=== PATIENT | male | born 1980 | race Caucasian/White ===

== ENCOUNTER 2017-07-20 15:48 | Emergency (ER) | payer BC ==
[~2017-07-20] VITALS: Ht 172.7 cm; Wt 78.0 kg
[~2017-07-20 15:48] MED LIST: DICY1TAB26 PO
[2017-07-20 15:56] VITALS: BP 137/89; PULSE 52; RESP 16; TEMP 97.7; O2SAT 100
--- NOTE | 2017-07-20 16:35 | PD ---
HPI Chief Complaint: Chest Pain Time Seen by Provider: 16:25 Travel History International Travel<30 days: No Contact w/Intl Traveler<30days: No Traveled to known affect area: No History of Present Illness HPI Patient is a 37-year-old male presents emergency department for evaluation of chest spasms and chest pain. Patient had an endoscopy today with Dr. Acevedo and had what he describes as esophageal dilation. There are looking for ulcers according to him. He states since the anesthesia worn off he's been having intermittent pain which is severe and feels like he needs to belch but only acid is coming up. States she's lost his appetite. Denies any blood in stool blood in the emesis. No pain on breathing. Denies any fevers. States the pain is severe, intermittent, context as above, associated signs symptoms as above. PFSH Past Medical History Asthma: Yes Diminished Hearing: No GERD: Yes Influenza Vaccination: No ?: Not Past Surgical History Abdominal Surgery: Yes (Hernia) Social History Alcohol Use: No Tobacco Use: Yes (Occ.) Substance Use: No Allergies-Medications (Allergen,Severity, Reaction): Coded Allergies: acetaminophen (Unverified Adverse Reaction, Intermediate, HIVES, 07/20/17) oxycodone (Unverified Adverse Reaction, Intermediate, HIVES, 07/20/17) promethazine (Unverified Adverse Reaction, Intermediate, EMESIS, 07/20/17) Reported Meds & Prescriptions Reported Meds & Active Scripts Active Sucralfate Liq (Sucralfate) 1 Gram/10 Ml Kerri 1 Gm PO QID on empty stomach Bentyl (Dicyclomine HCl) 10 Mg Cap 10 Mg PO TID PRN Nitroglycerin SL (Nitroglycerin) 0.4 Mg Subl 0.4 Mg SL DIRECTED PRN ONE TABLET UNDER THE TONGUE NEEDED FOR CHEST PAIN, MAY REPEAT EVERY FIVE MINUTES FOR A TOTAL OF 3 DOSES OR CALL 911 IF NO RELIEF Bentyl (Dicyclomine HCl) 20 Mg Tab 20 Mg PO Q8 Review of Systems Except as stated in HPI: all other systems reviewed are Neg Physical Exam Narrative GENERAL: Well-developed well-nourished appears fairly uncomfortable but having spasmodic episodes where he appears painful. SKIN: Focused skin assessment warm/dry. HEAD: Atraumatic. Normocephalic. EYES: Pupils equal and round. No scleral icterus. No injection or drainage. ENT: No nasal bleeding or discharge. Mucous membranes pink and moist. NECK: Trachea midline. No JVD. CARDIOVASCULAR: Regular rate and rhythm. No murmur appreciated. No gallops no rubs. No Pascual's crunch. RESPIRATORY: No accessory muscle use. Clear to auscultation. Breath sounds equal bilaterally. GASTROINTESTINAL: Abdomen soft, non-tender, nondistended. Hepatic and splenic margins not palpable. MUSCULOSKELETAL: No obvious deformities. No clubbing. No cyanosis. No edema. NEUROLOGICAL: Awake and alert. No obvious cranial nerve deficits. Motor grossly within normal limits. Normal speech. PSYCHIATRIC: Appropriate mood and affect; insight and judgment normal. Data Data Last Documented VS Vital Signs Date Time Temp Pulse Resp B/P (MAP) Pulse Ox O2 Delivery O2 Flow Rate FiO2 07/20/17 19:00 07/20/17 18:09 55 18 98 Room Air 07/20/17 15:56 97.7 Orders Orders Al-Mag Hy-Si 40-40-4 Mg/Ml Liq (Mag-Al P (07/20/17 16:45) Lidocaine 2% Viscous (Xylocaine 2% Visco (07/20/17 16:45) Chest, Pa & Lat (07/20/17 ) Ckmb (Isoenzyme) Profile (07/20/17 16:50) Complete Blood Count With Diff (07/20/17 16:50) Comprehensive Metabolic Panel (07/20/17 16:50) Magnesium (Mg) (07/20/17 16:50) Prothrombin Time / Inr (Pt) (07/20/17 16:50) Act Partial Throm Time (Ptt) (07/20/17 16:50) Troponin I (07/20/17 16:50) Ecg Monitoring (07/20/17 16:50) Iv Access Insert/Monitor (07/20/17 16:50) Oximetry (07/20/17 16:50) Oxygen Administration (07/20/17 16:50) Sodium Chloride 0.9% Flush (Ns Flush) (07/20/17 17:00) Orphenadrine Inj (Norflex Inj) (07/20/17 17:00) Nitroglycerin Sl (Nitrostat Sl) (07/20/17 17:15) CKMB (07/20/17 17:00) CKMB% (07/20/17 17:00) Gastrografin Swallow (07/20/17 ) Nitroglycerin Sl (Nitrostat Sl) (07/20/17 18:15) Ed Discharge Order (07/20/17 18:23) Electrocardiogram (07/20/17 16:02) Labs Laboratory Tests Test 07/20/17 17:00 White Blood Count 12.6 TH/MM3 Red Blood Count 4.85 MIL/MM3 Hemoglobin 15.4 GM/DL Hematocrit 44.2 % Mean Corpuscular Volume 91.1 FL Mean Corpuscular Hemoglobin 31.8 PG Mean Corpuscular Hemoglobin Concent 34.9 % Red Cell Distribution Width 11.6 % Platelet Count 174 TH/MM3 Mean Platelet Volume 7.1 FL Neutrophils (%) (Auto) 76.7 % Lymphocytes (%) (Auto) 16.8 % Monocytes (%) (Auto) 3.4 % Eosinophils (%) (Auto) 2.2 % Basophils (%) (Auto) 0.9 % Neutrophils # (Auto) 9.7 TH/MM3 Lymphocytes # (Auto) 2.1 TH/MM3 Monocytes # (Auto) 0.4 TH/MM3 Eosinophils # (Auto) 0.3 TH/MM3 Basophils # (Auto) 0.1 TH/MM3 CBC Comment DIFF FINAL Differential Comment Prothrombin Time 11.1 SEC Prothromb Time International Ratio 1.0 RATIO Activated Partial Thromboplast Time 29.9 SEC Blood Urea Nitrogen 12 MG/DL Creatinine 1.00 MG/DL Random Glucose 106 MG/DL Total Protein 7.3 GM/DL Albumin 4.1 GM/DL Calcium Level 9.2 MG/DL Magnesium Level 2.0 MG/DL Alkaline Phosphatase 66 U/L Aspartate Amino Transf (AST/SGOT) 16 U/L Alanine Aminotransferase (ALT/SGPT) 23 U/L Total Bilirubin 1.9 MG/DL Sodium Level 138 MEQ/L Potassium Level 3.9 MEQ/L Chloride Level 104 MEQ/L Carbon Dioxide Level 25.5 MEQ/L Anion Gap 9 MEQ/L Estimat Glomerular Filtration Rate 84 ML/MIN Total Creatine Kinase 124 U/L Creatine Kinase MB 1.2 NG/ML Troponin I LESS THAN 0.02 NG/ML MDM Medical Decision Making Medical Screen Exam Complete: Yes Emergency Medical Condition: Yes Differential Diagnosis Esophageal perforation, esophageal spasm, Boerhaave syndrome, Narrative Course Patient 37-year-old male had endoscopy and esophageal dilation today. He admitted to nursing that he after the procedure went to have some coffee and a large sausage. Since then he's been living alone. Likely this represents esophageal irritation from coffee in the sausage. Basic labs are reassuring, EKG negative. Chest x-ray shows no free air, discussed the patient with Dr. Bhatt who agrees with the patient either has CT scan or barium swallow indicated at this time. Patient discussed with Dr. Olvera of radiology who has reviewed the patient's swallow study and shows no esophageal abnormality. Patient feeling better after GI cocktail and nitroglycerin and Flexeril. He still having intermittent spasms of the much further spaced out. 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 He is stable for discharge. Diagnosis Primary Impression: Esophageal spasm Additional Instructions: Call Dr. jason florez first thing in the morning for further instructions. Avoid anything you have to chew tonight, tried pudding and Jell-O. No acidic foods. No tomatoes, no citrus. Med/Other Pt SpecificInfo: Prescription(s) given Scripts Sucralfate Liq (Sucralfate Liq) 1 Gram/10 Ml Kerri 1 GM PO QID for Duodenal ulcer, #1200 ML on empty stomach Prov: Jv Monteiro MD 07/20/17 Dicyclomine (Bentyl) 10 Mg Cap 10 MG PO TID Y for Bowel Management, #20 CAP 0 Refills Prov: Jv Monteiro MD 07/20/17 Nitroglycerin SL (Nitroglycerin SL) 0.4 Mg Subl 0.4 MG SL DIRECTED Y for Spasm, #25 TAB.SL 0 Refills ONE TABLET UNDER THE TONGUE NEEDED FOR CHEST PAIN, MAY REPEAT EVERY FIVE MINUTES FOR A TOTAL OF 3 DOSES OR CALL 911 IF NO RELIEF Prov: Jv Monteiro MD 07/20/17 Disposition: 01 DISCHARGE HOME Condition: Stable Jv Monteiro MD Jul 20, 2017 16:35
[2017-07-20] MEDS ORDERED: ALUMINUM/MAGNESIUM/SIMETH 30 ML CUP PO ONE (16:45)
[2017-07-20] MEDS ORDERED: LIDOCAINE VISCOUS 2% SOLN 15 ML UDC PO ONE (16:45)
--- NOTE | 2017-07-20 16:52 | RADRPT ---
EXAM DATE/TIME: 07/20/2017 16:39 [facility] COMPARISON: No previous studies available for comparison. INDICATIONS : Patient states pain in his chest and throat post endoscopy today. MEDICAL HISTORY : None. SURGICAL HISTORY : None. ENCOUNTER: Initial ACUITY: 1 day PAIN SCORE: 3/10 LOCATION: Bilateral chest FINDINGS: PA and lateral views of the chest demonstrate a normal-sized cardiac silhouette. There is no effusion , consolidation, or pneumothorax. The bones and soft tissues demonstrate no acute abnormality. EKG li gaye overlie the patient. No pneumomediastinum is appreciated. CONCLUSION: No acute abnormality is identified. Chencho Vargas MD on July 20, 2017 at 16:50 Board Certified Radiologist. This report was verified electronically.
[2017-07-20] MEDS ORDERED: SODIUM CHLORIDE 0.9% FLUSH 10 ML FLUSH IVF PRN (17:00)
[2017-07-20] MEDS ORDERED: ORPHENADRINE INJ 60 MG/2 ML AMP IM ONE (17:00)
[2017-07-20 17:10] VITALS: BP 145/83; PULSE 60; RESP 18; O2SAT 98
[2017-07-20 17:10] LABS: AUTOMATED NEUTROPHIL # 9.7 TH/MM3 (1.8-7.7); BASOPHIL # 0.1 TH/MM3 (0-0.2); BASOPHIL % 0.9 % (0.0-2.0); EOSINOPHIL # 0.3 TH/MM3 (0-0.4); EOSINOPHIL % 2.2 % (0.0-4.0); HEMATOCRIT 44.2 % (39.0-51.0); LYMPH % 16.8 % (9.0-44.0); LYMPHOCYTE # 2.1 TH/MM3 (1.0-4.8); MEAN CELL VOLUME 91.1 FL (80.0-100.0); MEAN CORPUSCULAR HEMOGLOBIN 31.8 PG (27.0-34.0); MEAN CORPUSCULAR HGB CONC 34.9 % (32.0-36.0); MONO % 3.4 % (0.0-8.0); NEUT % 76.7 % (16.0-70.0); PLATELET COUNT 174 TH/MM3 (150-450); RED BLOOD COUNT 4.85 MIL/MM3 (4.50-5.90); RED CELL DISTRIBUTION WIDTH 11.6 % (11.6-17.2); WHITE BLOOD COUNT 12.6 TH/MM3 (4.0-11.0)
[2017-07-20 17:11] LABS: HEMO FLAGS DIFF FINAL
[2017-07-20] MEDS ORDERED: NITROGLYCERIN 0.4 MG SL 25 TABS/BTL SL ONE ×2 (17:15→18:15)
[2017-07-20 17:18] LABS: CHLORIDE 104 MEQ/L (98-107); POTASSIUM 3.9 MEQ/L (3.5-5.1); SODIUM (NA) 138 MEQ/L (136-145)
[2017-07-20 17:22] LABS: ANION GAP 9 MEQ/L (5-15); APTT (PATIENT) 29.9 SEC (24.3-30.1); BICARBONATE 25.5 MEQ/L (21.0-32.0); BLOOD UREA NITROGEN 12 MG/DL (7-18); PROTHROMBIN TIME - PATIENT 11.1 SEC (9.8-11.6)
[2017-07-20 17:25] LABS: ALT (GPT) 23 U/L (12-78); AST (GOT) 16 U/L (15-37); GLOMERULAR FILTRATION RATE 84 ML/MIN (>89)
[2017-07-20 17:26] LABS: TOTAL BILIRUBIN ADULT 1.9 MG/DL (0.2-1.0)
[2017-07-20 17:28] LABS: ALKALINE PHOSPHATASE 66 U/L (45-117); CREATINE KINASE 124 U/L (39-308)
[2017-07-20 17:39] LABS: CKMB 1.2 NG/ML (0.5-3.6)
[2017-07-20 18:09] VITALS: BP 141/84; PULSE 55; RESP 18; O2SAT 98
[2017-07-20] MEDS ORDERED: SUCR1S PO (18:13)
[2017-07-20] MEDS ORDERED: DICY10 PO (18:13)
[2017-07-20] MEDS ORDERED: NITR1SUB3 SL (18:13)
--- NOTE | 2017-07-21 08:43 | RADRPT ---
EXAM DATE/TIME: 07/20/2017 17:02 [facility] COMPARISON: No previous studies available for comparison. INDICATIONS : Patient states pain swallowing after having edoscopy today. FLUORO TIME: 2.4 minutes IMAGE COUNT: 9 CONTRAST: 1. Gastrografin (Diatrizoate Meglumine and Diatrizoate Sodium) MEDICAL HISTORY : Dysphagia. SURGICAL HISTORY : Esophageal dilation. ENCOUNTER: Initial ACUITY: 1 day PAIN SCORE: 9/10 LOCATION: esophagus. FINDINGS: Examination of the esophagus demonstrates the swallowing function to be normal. There is no evidence of aspiration or penetration. The body of the esophagus is unremarkable. The esophageal transit ti me is normal. In the supine position there is no evidence of mass or external compression. No hiatal hernia is luana ntified. No reflux is seen. There is no evidence of extravasation of contrast. The stomach is grossl y unremarkable. Findings were discussed with the ER physician. CONCLUSION: Unremarkable examination of the esophagus. Specifically, no evidence of obstruction or perforation. Jaime Cook MD on July 21, 2017 at 8:40 Board Certified Radiologist. This report was verified electronically.
--- NOTE | 2017-07-21 16:27 | EKG ---
Date Performed: 07/20/2017 Time Performed: 16:02:20 PTAGE: 37 years EKG: Sinus rhythm WITH SINUS ARRHYTHMIA NORMAL ECG NO PREVIOUS TRACING DOCTOR: Albaro Jerez Interpretating Date/Time 07/21/2017 16:26:43
== END 2017-07-20 19:00 | disposition home or self-care (01) ==
LOC: PHED 15:48
DX: K22.4 Dyskinesia of esophagus (principal); I49.8 Other specified cardiac arrhythmias
CPT/HCPCS: 71020; 74220; 80053; 82550; 82552; 83735; 84484; 85025; 85610; 85730; 93005; 96372; 99284; J2360